=== PATIENT | male | born 1970 | race Caucasian/White ===

== ENCOUNTER 2016-10-31 14:46 | Emergency (ER) | payer BC, MEDICAID ==
--- NOTE | 2016-10-31 15:00 | ED Physician Documentation ---
PD HPI LOWER EXT INJURY - Stated complaint Stated Complaint: RT FOOT INJ - Chief complaint Chief Complaint: Ext Problem - History obtained from History obtained from: Patient - History of Present Illness PD HPI LOW EXT INJURY LOCATION: Right, Ankle, Foot (proximal foot) Type of injury: Twist Where injury occurred: Home Timing - onset: Today Timing - details: Abrupt onset, Still present Worsened by: Moving, Palpating Associated symptoms: Swelling. No: Weakness, Numbness Review of Systems Constitutional: denies: Fever, Chills Skin: denies: Abrasion (s), Laceration (s) Neurologic: reports: Numbness. denies: Focal weakness Endocrine: denies: Easy bruising / bleeding PD PAST MEDICAL HISTORY - Past Medical History Cardiovascular: None Respiratory: None Endocrine/Autoimmune: Type 2 diabetes GI: None : None HEENT: None Psych: None Musculoskeletal: Osteoarthritis Derm: None - Past Surgical History Past Surgical History: Yes Ortho: ACL reconstruction, Arthroscopic surgery - Present Medications Home Medications: Ambulatory Orders Medication Instructions Recorded Confirmed Insulin 70/30 Human [NovoLIN] 75 units SQ DAILY 11/30/13 10/31/16 Insulin 70/30 Human [NovoLIN] 65 units SUBQ QPM 11/26/14 10/31/16 Albuterol [Ventolin Hfa] 2 puffs INH Q4H PRN #1 inhaler 12/05/14 10/31/16 HYDROcod/ACETAM 5/325 [[place] 5/325] 1 tab PO Q6H PRN #15 tablet 10/31/16 Ibuprofen [Motrin] 600 mg PO TID #20 tab 10/31/16 - Allergies Allergies/Adverse Reactions: Allergies Allergy/AdvReac Type Severity Reaction Status Date / Time iodine Allergy Severe Anaphylaxis Verified 10/31/16 14:54 - Social History Does the pt smoke?: Yes Smoking Status: Current every day smoker Does the pt drink ETOH?: No Does the pt have substance abuse?: No - Immunizations Immunizations are current?: No - POLST Patient has POLST: No PD ED PE NORMAL - Vitals Vital signs reviewed: Yes - General General: Alert and oriented X 3, No acute distress, Well developed/nourished - Derm Derm: Normal color, Warm and dry - Extremities Extremities: Other (right ankle and proximal foot dorsolaterally with some tenderness and swelling. No noted laxity with inversion stress.) Results - Vitals Vitals: Oxygen O2 Source Room air - Rads (name of study) ankle right Radiology: Prelim report reviewed (no fractures) PD MEDICAL DECISION MAKING - ED course Complexity details: reviewed results, considered differential, d/w patient Departure - Departure Disposition: 01 Home, Self Care Clinical Impression: Ankle sprain Qualifiers: Encounter type: initial encounter Involved ligament of ankle: other ligament Laterality: right Qualified Code(s): S93.491A - Sprain of other ligament of right ankle, initial encounter Condition: Stable Record reviewed to determine appropriate education?: Yes Instructions: ED Sprain Ankle W X Ray, ED Boot Aircast Walker Follow-Up: Saqib Forbes MD [Provider Admit Priv/Credential] - Prescriptions: Ibuprofen [Motrin] 600 mg PO TID #20 tab HYDROcod/ACETAM 5/325 [[place] 5/325] 1 tab PO Q6H PRN #15 tablet PRN Reason: Pain Comments: Use the walking boot when up and around for the next 2-3 weeks until fully healed. Recheck if it does not feel healed during that time. You can use crutches initially to reduce the pain of weightbearing. Progress weightbearing as able and a sprained can heel with walking on it as long as it supported. Ibuprofen 400-600 mg 3 times a day. Add pain medicine if needed. Ice, elevate , rest the ankle often today to reduce swelling. Discharge Date/Time: 10/31/16 15:55
[2016-10-31] MEDS ORDERED: IBUPROFEN 600 MG TABLET PO STA (15:10)
[2016-10-31] MEDS ORDERED: HYDROcod/ACETAM 5/325 MG TABLET PO STA (15:11)
[2016-10-31] MEDS ORDERED: HYDROcod/ACETAM 5/325 MG TABLET ONE (15:23)
[2016-10-31] MEDS ORDERED: IBUPROFEN 600 MG TABLET PO ONE (15:23)
--- NOTE | 2016-10-31 15:36 | XRAY Preliminary Report ---
Exam: XR Ankle 3 View RT IMPRESSION: 1. Normal alignment without evidence for acute fracture or dislocation of the right ankle. 2. Corticated ossicle projecting inferior to the lateral malleolus could represent sequelae of remote injury. [facility] SITE ID: [id number]
--- NOTE | 2016-10-31 15:37 | XRAY Preliminary Report ---
Exam: XR Foot 3 View RT IMPRESSION: Normal foot radiography. [facility] SITE ID: [id number]
--- NOTE | 2016-10-31 15:39 | XRAY Report ---
EXAM: RIGHT ANKLE RADIOGRAPHY EXAM DATE: 10/31/2016 03:25 PM. CLINICAL HISTORY: Roll injury right ankle foot pain. COMPARISON: None. TECHNIQUE: 3 views. FINDINGS: Bones: No acute fracture line is seen. Corticated ossicle projecting inferior to the lateral malleolu s could represent sequela of remote injury. Joints: Normal alignment of the ankle mortise. No effusion or subluxation. Soft Tissues: Normal. No soft tissue swelling. IMPRESSION: 1. Normal alignment without evidence for acute fracture or dislocation of the right ankle. 2. Corticated ossicle projecting inferior to the lateral malleolus could represent sequelae of remote injury. [facility] Referring Provider Line: [phone] SITE ID: [id number]
--- NOTE | 2016-10-31 15:40 | XRAY Report ---
EXAM: RIGHT FOOT RADIOGRAPHY EXAM DATE: 10/31/2016 03:25 PM. CLINICAL HISTORY: Fell down stairs, roll injury to right foot. COMPARISON: None. TECHNIQUE: 3 views. FINDINGS: Bones: Normal. No fractures or bone lesions. Joints: Normal. No subluxations. Soft Tissues: Normal. No soft tissue swelling. IMPRESSION: Normal foot radiography. [facility] Referring Provider Line: [phone] SITE ID: [id number]
[2016-10-31 16:02] VITALS: BP 124/87
== END 2016-10-31 15:55 | disposition home or self-care (01) ==
LOC: ED 14:46
DX: S93.491A Sprain of other ligament of right ankle, initial encounter (principal); W19.XXXA Unspecified fall, initial encounter; X50.1XXA Overexertion from prolonged static or awkward postures, initial encounter; Y92.009 Unspecified place in unspecified non-institutional (private) residence as the place of occurrence of the external cause; E11.8 Type 2 diabetes mellitus with unspecified complications; F17.200 Nicotine dependence, unspecified, uncomplicated; Z79.4 Long term (current) use of insulin
CPT/HCPCS: 73610; 73630; 99283; A9270

== ENCOUNTER 2018-01-10 10:01 | Emergency (ER) | payer BC, MEDICAID, OTHER ==
--- NOTE | 2018-01-10 12:09 | ED Physician Documentation ---
PD HPI URI - Stated complaint Stated Complaint: SOA/COUGH - Chief complaint Chief Complaint: Resp - History obtained from History obtained from: Patient - History of Present Illness Timing - onset: Other (47-year-old gentleman with type 2 diabetes and chronic back pain presents with a biphasic respiratory illness. He became sick about 2 weeks ago with productive cough, nasal drip and sinus pain. He was getting much better but over the last couple of days his relapse with a significant productive cough, shortness of breath. No fevers. He does still have sinus pain. No sore throat. His whole family has been sick with a similar illness but they are all better.) Review of Systems Constitutional: reports: Fatigue. denies: Fever, Chills Nose: reports: Rhinorrhea / runny nose, Congestion, Sinus pressure / pain Throat: denies: Sore throat Respiratory: reports: Dyspnea, Cough GI: denies: Abdominal Pain PD PAST MEDICAL HISTORY - Past Medical History Cardiovascular: None Respiratory: None Endocrine/Autoimmune: Type 2 diabetes GI: None : None HEENT: None Psych: None Musculoskeletal: Osteoarthritis Derm: None - Past Surgical History Past Surgical History: Yes Ortho: ACL reconstruction, Arthroscopic surgery - Present Medications Home Medications: Ambulatory Orders Medication Instructions Recorded Confirmed Insulin 70/30 Human [NovoLIN] 75 units SQ DAILY 11/30/13 10/31/16 Insulin 70/30 Human [NovoLIN] 65 units SUBQ QPM 11/26/14 10/31/16 Albuterol [Ventolin Hfa] 2 puffs INH Q4H PRN #1 inhaler 12/05/14 10/31/16 HYDROcod/ACETAM 5/325 [[place] 5/325] 1 tab PO Q6H PRN #15 tablet 10/31/16 Ibuprofen [Motrin] 600 mg PO TID #20 tab 10/31/16 Albuterol Sulf [Ventolin Hfa 1 - 2 puffs INH Q4HR PRN #1 inhaler 01/10/18 Inhaler] Azithromycin [Zithromax] 250 mg PO DAILY #6 tablet 01/10/18 Hydrocodone Bit/Homatrop Me-Br 5 - 10 ml PO Q4HR PRN #120 ml 01/10/18 [Hydrocodone-Homatropine Syrup] - Allergies Allergies/Adverse Reactions: Allergies Allergy/AdvReac Type Severity Reaction Status Date / Time iodine Allergy Severe Anaphylaxis Verified 01/10/18 10:17 - Social History Does the pt smoke?: Yes Smoking Status: Current every day smoker Does the pt drink ETOH?: No Does the pt have substance abuse?: No - Immunizations Immunizations are current?: No - POLST Patient has POLST: No PD ED PE NORMAL - Vitals Vital signs reviewed: Yes - General General: Alert and oriented X 3, No acute distress - HEENT HEENT: PERRL, EOMI, Ears normal, Pharynx benign - Neck Neck: Supple, no meningeal sign, No bony TTP - Cardiac Cardiac: RRR, No murmur - Respiratory Respiratory: No respiratory distress, Clear bilaterally - Abdomen Abdomen: Non tender - Neuro Neuro: Alert and oriented X 3, Normal speech - Psych Psych: Normal mood, Normal affect Results - Vitals Vitals: Vital Signs - 24 hr 01/10/18 10:15 Temperature 36.0 C L Heart Rate 104 H Respiratory 16 Rate Blood Pressure 137/91 H O2 Saturation 99 Oxygen O2 Source Room air - Labs Labs: Laboratory Tests 01/10/18 10:20 Influenza A (Rapid) Negative Influenza B (Rapid) Negative PD MEDICAL DECISION MAKING - ED course ED course: Given the biphasic illness and chronic diabetes he does meet IDSA criteria for antibiotic use for bronchitis. 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 Diabetes mellitus complication status: without complication Qualified Code(s): E11.9 - Type 2 diabetes mellitus without complications; Z79.4 - [facility] (current) use of insulin Condition: Good Record reviewed to determine appropriate education?: Yes Instructions: ED Bronchitis Asthmatic Prescriptions: Albuterol Sulf [Ventolin Hfa Inhaler] 1 - 2 puffs INH Q4HR PRN #1 inhaler PRN Reason: Shortness Of Air/Wheezing Hydrocodone Bit/Homatrop Me-Br [Hydrocodone-Homatropine Syrup] 5 - 10 ml PO Q4HR PRN #120 ml PRN Reason: Cough Azithromycin [Zithromax] 250 mg PO DAILY #6 tablet Comments: Call your doctor to arrange a follow-up appointment, make the next available appointment. In the interim, return anytime if worse or if new symptoms develop. Your blood pressure was elevated today on check into the emergency department. This does not mean that you have hypertension, it is a common phenomenon to come to the emergency department and have elevated blood pressure. I recommend that you see your primary care physician within the week to have it rechecked when you are feeling better.
[2018-01-10 12:18] VITALS: BP 130/107
== END 2018-01-10 12:20 | disposition home or self-care (01) ==
LOC: ED 10:01
DX: J40 Bronchitis, not specified as acute or chronic (principal); E11.9 Type 2 diabetes mellitus without complications; F17.200 Nicotine dependence, unspecified, uncomplicated; Z79.4 Long term (current) use of insulin
CPT/HCPCS: 87275; 87276; 99283